=== PATIENT | male | born 1940 | race Caucasian/White ===

== ENCOUNTER 2020-01-14 10:34 | Emergency (ER) | payer MEDICARE, OTHER, SELFPAY ==
--- NOTE | ~2020-01-14 | CT_ITS ---
EXAMINATION: CT brain wo con DATE: 01/14/2020 10:54 INDICATION: Headache, dizziness and nausea TECHNIQUE: Computed tomography (CT) of the head was performed without intravenous contrast. Sagittal and coronal reconstructions were performed. The mA was adjusted according to patient size. Iterative reconstruction technique was employed. The dose-length product was 605.33 mGy-cm. COMPARISON: head CT dated 04/09/2014 FINDINGS: No acute intracranial hemorrhage, acute infarction or abnormal extra axial fluid collection. No mass/ mass effect. There is moderate scattered white matter hypoattenuation consistent with chronic small v essel ischemic disease. Symmetric prominence of the sulci consistent with mild age-appropriate diffus e cerebral volume loss. Ventricles are normal and symmetric. Mild mucosal thickening in the bilateral ethmoid sinuses. The orbits and mastoid air cells are normal. Intracranial calcified cerebral athero sclerosis is noted. IMPRESSION: 1. No acute intracranial process. 2. Age-related changes including mild diffuse volume loss and moderate scattered white matter hypoatt enuation consistent with chronic small vessel ischemic disease. Reviewed, dictated and finalized at location A. IMPRESSION: 1. No acute intracranial process. 2. Age-related changes including mild diffuse volume loss and moderate scattere d white matter hypoattenuation consistent with chronic small vessel ischemic di sease.
--- NOTE | ~2020-01-14 | XR_ITS ---
EXAMINATION: XR chest 1V DATE: 01/14/2020 10:59 INDICATION: Cerebrovascular accident. TECHNIQUE: A single frontal view of the chest was obtained. COMPARISON: Chest single view 07/23/2015 FINDINGS: There is mild atelectasis at left lung base. No pleural effusion or pneumothorax. The heart size is normal. There is an old healed right rib fracture. There are changes of anterior fusion proc edure in cervical spine. IMPRESSION: 1. Mild atelectasis at left lung base. Reviewed, dictated and finalized at location A.
[2020-01-14 10:38] VITALS: BP 149/81; PULSE 61; RESP 17; TEMP 36.3; O2SAT 97
--- NOTE | 2020-01-14 10:41 | ECG_ITS ---
Measurements Intervals [place] Rate: 52 P: 6 [place]: 245 QRS: -13 QRSD: 113 T: 21 QT: 464 QTc: 435 Interpretive Statements SINUS BRADYCARDIA WITH FIRST DEGREE AV BLOCK INTRAVENTRICULAR CONDUCTION DELAY DELAYED PRECORDIAL R/S TRANSITION LOW QRS VOLTAGE IN PRECORDIAL LEADS INFERIOR INFARCT, AGE INDETERMINATE BASELINE ARTIFACT- I, III, AVR, AVL, AVF, V1-V6 ABNORMAL ECG Electronically Signed On 01-14-2020 11:15:39 CDT by Caio Pop D.O.
[2020-01-14 10:45] LABS: Glucose Point of Care 86 (65-105)
--- NOTE | 2020-01-14 10:48 | PC.NURSE ---
Pt to CT scan.
[2020-01-14 10:54] LABS: Basophils Percent Auto 0.4 % (0.2-1.2); Eosinophils Absolute Auto 0.1 K/mm3 (0-0.3); Eosinophils Percent Auto 1.6 % (0-4.4); Hematocrit 33.1 % (42.0-52.0); Hemoglobin 11.1 g/dL (14.0-18.0); Immature Granulocyte Absolute 0.02 K/mm3 (0.00-0.031); Immature Granulocyte Percent A 0.4 % (0-0.5); Lymphocytes Absolute Auto 1.08 K/mm3 (0.9-3.2); Lymphocytes Percent Auto 24.3 % (18.3-44.2); Mean Corpuscular HGB Conc 33.5 g/dl (32-36); Mean Corpuscular Hemoglobin 32.8 pg (26-34); Mean Corpuscular Volume 97.9 fl (80-100); Mean Platelet Volume 10.3 fl (7.4-10.4); Monocytes Absolute Auto 0.3 K/mm3 (0.1-0.6); Neutrophils Percent Auto 66.3 % (45.5-73.1); Platelet Count Result 202 k/mm3 (150-375); Red Blood Count 3.38 M/mm3 (4.6-6.20); Red Cell Distribution Width 15.8 % (11.5-14.5); White Blood Count 4.5 K/mm3 (4.5-10.0)
[2020-01-14 11:06] LABS: Blood Urea Nitrogen 16 mg/dL (9-20); Carbon Dioxide 31 mmol/L (22-30); Chloride 104 mmol/L (98-107); Estimated CRCL calculation 61 ml/min; Estimated Glomerular Filt Rate > 60; Glucose 105 mg/dL (75-110); Potassium 4.4 mmol/L (3.4-5.0); Sodium 140 mmol/L (137-145)
--- NOTE | 2020-01-14 11:08 | ED.NEUROSD ---
HPI - Neuro Symptoms/Deficit General Chief Complaint: Suspected CVA <ZOHRA Zamora Last Filed: 01/14/20 14:10> Stated Complaint: dizzy, headache, nausea, h/a <ZOHRA Zamora Last Filed: 01/14/20 14:10> Time Seen by Provider: 01/14/20 10:56 <ZOHRA Zamora Last Filed: 01/14/20 14:10> Source: patient <ZOHRA Zamora Last Filed: 01/14/20 14:10> Mode of arrival: ambulatory <ZOHRA Zamora Filed: 01/14/20 14:10> Limitations: no limitations <ZOHRA Zamora Last Filed: 01/14/20 14:10> History of Present Illness HPI Narrative: This is a 79-year-old male that presents to the emergency department for an episode of dizziness this morning. Reports he was working on his boat and turned his head to the left. Reports he suddenly felt dizzy and was sweating. Reports a headache. Reports the episode lasted briefly. Now has just a mild frontal headache. Denies fever, vision changes, vomiting, numbness or weakness. <ZOHRA Zamora Last Filed: 01/14/20 14:10> Related Data Home Medications: Home Medications Medication Instructions Recorded Confirmed aspirin 81 mg tablet,delayed 81 mg PO DAILY 08/19/19 release <ZOHRA Zamora Last Filed: 01/14/20 14:10> Allergies/Adverse Reactions: Allergies Allergy/AdvReac Type Severity Reaction Status Date / Time clonidine Allergy Mild unknown Verified 01/14/20 11:29 latex Allergy Unknown Rash Verified 01/14/20 11:29 <ZOHRA Zamora Last Filed: 01/14/20 14:10> Review of Systems Review of Systems: Narrative: CONSTITUTIONAL: Denies fever EYES: Denies visual changes CARDIOVASCULAR: Denies chest pain RESPIRATORY: Denies dyspnea. GASTROINTESTINAL: Denies vomiting GENITOURINARY: Denies dysuria NEUROLOGIC: Reports headache. Denies numbness, or weakness. <ZOHRA Zamora Filed: 01/14/20 14:10> All systems reviewed & are unremarkable except as noted in HPI and below <Prudence Hernandez PA-C - Last Filed: 01/14/20 14:10> COUNT INCLUDES THE [facility] Past Medical History Medical History: Medical History (Updated 01/14/20 @ 14:08 by Prudence Hernandez PA-C) Bunion of great toe History of coronary artery disease History of hyperlipidemia History of hypertension <Prudence Hernandez PA-C - Last Filed: 01/14/20 14:10> Surgical History Surgical History: Surgical History H/O cervical discectomy H/O colonoscopy H/O spinal fusion History of esophagogastroduodenoscopy (EGD) History of nephrectomy Hx of cholecystectomy <Prudence Hernandez PA-C - Last Filed: 01/14/20 14:10> Social History Social History: Social History Alcohol intake: never Gender identity (if verbalized by the patient): Male <Prudence Hernandez PA-C - Last Filed: 01/14/20 14:10> Exam Narrative: Exam Narrative: GENERAL: Well-appearing, well-nourished, and in no acute distress. HEAD: Normocephalic, atraumatic. EYES: PERRLA and EOMI. ENT: Nares clear, no rhinorrhea or epistaxis. Mucous membranes moist. Oropharynx without tonsillar hypertrophy exudate or other lesions. Bilateral TMs pearly enrique non-bulging NECK: Supple. No adenopathy or masses. No carotid bruits or JVD CHEST: Clear to auscultation. No respiratory distress. No wheezes rales or rhonchi HEART: Regular rate and rhythm. No murmur heard. Normal peripheral pulses. EXTREMITIES: Normal range of motion. No edema. SKIN: Warm, dry, no rash. NEURO: No focal deficits. Alert and oriented x3. Cranial nerves II through XII grossly intact. Normal [id number]. Normal [id number]. Normal gait PSYCH: Normal mood and affect <Prudence Hernandez PA-C - Last Filed: 01/14/20 14:10> Course Vital Signs Vital signs: Vital Signs Temperature 36.3 C L 01/14/20 10:38 Pulse Rate 61 01/14/20 10:38 Respiratory Rate
[2020-01-14 11:09] LABS: Prothrombin Time 12.9 Seconds (11.1-14.7)
[2020-01-14 11:10] LABS: Partial Thromboplastin Time 34.6 SECONDS (22.3-36.8)
[2020-01-14 11:15] VITALS: BP 152/81; PULSE 53; RESP 19; O2SAT 96
[2020-01-14 11:17] VITALS: O2SAT 96
[2020-01-14 11:19] LABS: Troponin I < 0.012 ng/mL (0.000-0.034)
[2020-01-14] MEDS: ONDANSETRON INJ 4 MG/2 ML VIAL IV PUSH (11:26)
[2020-01-14 13:01] VITALS: BP 152/76; PULSE 53; RESP 13; O2SAT 97
[2020-01-14] MEDS: MECLIZINE HCL 25 MG TABLET PO (13:23)
[2020-01-14 14:51] VITALS: BP 165/87; PULSE 53; RESP 16; TEMP 36.8; O2SAT 99
== END 2020-01-14 14:54 | disposition home or self-care (01) ==
PROVIDERS: Emergency Provider Emergency Medicine; PCP Family Medicine
DX: R42 Dizziness and giddiness (principal); I25.10 Atherosclerotic heart disease of native coronary artery without angina pectoris; E78.5 Hyperlipidemia, unspecified; I10 Essential (primary) hypertension; Z98.1 Arthrodesis status; Z90.5 Acquired absence of kidney; I44.0 Atrioventricular block, first degree; I45.9 Conduction disorder, unspecified; R94.31 Abnormal electrocardiogram [ECG] [EKG]; R91.8 Other nonspecific abnormal finding of lung field; Z79.82 Long term (current) use of aspirin
CPT/HCPCS: 36415; 70450; 71045; 80048; 82948; 84484; 85025; 85610; 85730; 93005; 96365; 96375; 99284; A9270; J0131; J2405

== ENCOUNTER 2020-07-12 15:46 | Outpatient (CLI) | payer MEDICARE, SELFPAY ==
--- NOTE | ~2020-07-12 | XR_ITS ---
EXAMINATION: XR knee LT 2V DATE: 07/12/2020 16:10 INDICATION: Left knee pain. Gout. TECHNIQUE: 2 views of left knee were obtained. COMPARISON: None. FINDINGS: Bone alignment is normal. No fracture. There is mild osteoarthritis of patellofemoral erendira rtment. There is chondrocalcinosis of the menisci. No knee joint effusion. IMPRESSION: 1. Mild left knee osteoarthritis. Reviewed, dictated and finalized at location A. TIC SURGERY MANAGER
== END 2020-07-12 15:47 | disposition home or self-care (01) ==
LOC: ANHIMG 15:53
PROVIDERS: PCP Family Medicine; Visit Provider Physician Assistant
DX: M10.9 Gout, unspecified (principal); M17.12 Unilateral primary osteoarthritis, left knee; M11.262 Other chondrocalcinosis, left knee
CPT/HCPCS: 73560

== ENCOUNTER 2020-07-26 16:28 | Outpatient (CLI) | payer MEDICARE, SELFPAY ==
--- NOTE | ~2020-07-26 | XR_ITS ---
EXAMINATION: XR chest 2V DATE: 07/26/2020 17:14 INDICATION: Cough TECHNIQUE: PA and lateral views of the chest are obtained. COMPARISON: 01/14/2020 FINDINGS: The lungs are free of acute opacities. There is no pleural effusion or pneumothorax. The ca rdiomediastinal silhouette is normal. There are bridging osteophytes at multiple levels in the spine, consistent with diffuse idiopathic skeletal hyperostosis (DISH). There are changes of anterior fusio n procedure at the cervicothoracic junction. IMPRESSION: 1. No acute cardiopulmonary abnormality. Reviewed, dictated and finalized at location A. SUPPORT ENGINEER
== END 2020-07-26 16:29 | disposition home or self-care (01) ==
LOC: ANHIMG 16:39
PROVIDERS: PCP Family Medicine; Visit Provider Physician Assistant
DX: R05 Cough (principal)
CPT/HCPCS: 71046

== ENCOUNTER → 2020-10-05 11:03 | Outpatient (CLI) | payer MEDICARE, SELFPAY ==
--- NOTE | ~2020-10-05 | CT_ITS ---
EXAMINATION: CT lumbar spine wo con DATE: 10/05/2020 11:34 INDICATION: Dorsalgia, unspecified. TECHNIQUE: Computed tomography (CT) of the lumbar spine was performed without intravenous contrast. A utomated exposure control and iterative reconstruction technique were employed. The dose-length produ ct was 930.57 mGy-cm. COMPARISON: None FINDINGS: There is 13 degrees levoscoliosis of lumbar spine. There is mild chronic anterior wedging o f L1 vertebral body. There is 4 mm retrolisthesis of L2 on L3. There is severely decreased disc heigh t at L1-L2, L2-L3, and L4-L5 and moderately decreased disc height at L3-L4. The following disc levels are specifically discussed: L1-L2: The disc is bulging. There is mild bilateral facet joint osteoarthritis. There is moderate rig ht and mild left neural foraminal stenosis. There is mild central canal stenosis. L2-L3: The disc is bulging. There is mild bilateral facet joint osteoarthritis. There is severe right and moderate left neural foraminal stenosis. There is mild central canal stenosis. L3-L4: The disc is bulging. There is severe right and moderate left facet joint osteoarthritis. There is moderate bilateral neural foraminal stenosis. There is mild central canal stenosis. L4-L5: The disc is bulging. There is severe bilateral facet joint osteoarthritis. There is moderate b ilateral neural foraminal stenosis. There is mild central canal stenosis. L5-S1: The disc is bulging. There is severe bilateral facet joint osteoarthritis. There is mild right and moderate left neural foraminal stenosis. There is mild central canal stenosis. IMPRESSION: 1. Severe lumbar spondylosis. 2. Lumbar levoscoliosis. Reviewed, dictated and finalized at location A.
--- NOTE | ~2020-10-05 | CT_ITS ---
EXAMINATION: CT cervical spine wo con DATE: 10/05/2020 11:34 INDICATION: Unsteady gait. Bilateral leg pain. Dorsalgia. TECHNIQUE: Computed tomography (CT) of the cervical spine was performed without intravenous contrast. Automated exposure control and iterative reconstruction technique were employed. The dose-length pro duct was 272.32 mGy-cm. COMPARISON: CT cervical spine 04/09/2014 FINDINGS: There is mild emphysema. There is 3 mm retrolisthesis of C3 on C4. There are changes of ant erior fusion procedure from C4 to C7 with discectomies, healed interbody bone graft, and anterior jonna te and screws. Vertebral body heights are normal. There is severely decreased disc height at C3-C4, C 7-T1, and T1-T2. The following disc levels are specifically discussed: C2-C3: There is mild left uncovertebral joint osteoarthritis. There is mild right and moderate left f acet joint osteoarthritis. There is mild left neural foraminal stenosis. There is no central canal st enosis. C3-C4: There is severe bilateral uncovertebral joint osteoarthritis. There is severe right and mild l eft facet joint osteoarthritis. There is moderate right and mild left neural foraminal stenosis. Ther e is mild central canal stenosis. C4-C5: There is moderate right and severe left uncovertebral joint hypertrophy. There is no facet otto nt osteoarthritis. There is mild right and moderate left neural foraminal stenosis. There is no centr al canal stenosis. C5-C6: There is moderate bilateral uncovertebral joint hypertrophy. There is moderate bilateral facet joint osteoarthritis. There is mild right and moderate left neural foraminal stenosis. There is no c entral canal stenosis. C6-C7: There is mild bilateral uncovertebral joint hypertrophy. There is moderate bilateral facet otto nt osteoarthritis. There is mild bilateral neural foraminal stenosis. There is no central canal steno sis. C7-T1: There is severe bilateral uncovertebral joint osteoarthritis. There is moderate and severe lef t facet joint osteoarthritis. There is mild bilateral neural foraminal stenosis. There is no central canal stenosis. IMPRESSION: 1. Severe cervical spondylosis. 2. Anterior fusion procedure from C4 to C7. Reviewed, dictated and finalized at location A.
== END ==
PROVIDERS: PCP Family Medicine; Visit Provider Family Medicine
DX: R26.81 Unsteadiness on feet (principal); M54.9 Dorsalgia, unspecified; M79.606 Pain in leg, unspecified; M47.812 Spondylosis without myelopathy or radiculopathy, cervical region; Z98.1 Arthrodesis status; M47.816 Spondylosis without myelopathy or radiculopathy, lumbar region; M41.86 Other forms of scoliosis, lumbar region
CPT/HCPCS: 72125; 72131

== ENCOUNTER 2020-10-09 17:46 | Inpatient (IN) | payer MEDICARE, SELFPAY ==
[2020-10-09] VITALS (13 sets, daily range): BP systolic 140–187; BP diastolic 71–89; PULSE 55–71; RESP 12–21; TEMP 35.9–36.8; O2SAT 95–98; BMI 30.7
--- NOTE | ~2020-10-09 | XR_ITS ---
EXAMINATION: XR chest 2V DATE: 10/09/2020 18:14 INDICATION: Left chest pain. TECHNIQUE: Frontal and lateral views of the chest were obtained. COMPARISON: Chest 2 views 07/26/2020 FINDINGS: There is mild atelectasis at left lung base. No pleural effusion or pneumothorax. The heart size is normal. There are changes of anterior fusion procedure in cervical spine. There are surgical clips in right upper quadrant of the abdomen. IMPRESSION: 1. Mild atelectasis at left lung base. Reviewed, dictated and finalized at location A.
--- NOTE | 2020-10-09 17:47 | ECG_ITS ---
Measurements Intervals [place] Rate: 63 P: 12 [place]: 241 QRS: -34 QRSD: 115 T: 42 QT: 417 QTc: 428 Interpretive Statements SINUS RHYTHM WITH FIRST DEGREE AV BLOCK LOW QRS VOLTAGE IN PRECORDIAL LEADS POOR R WAVE PROGRESSION, ANTERIOR LEADS INFERIOR INFARCT, AGE INDETERMINATE ABNORMAL ECG Electronically Signed On 10-10-2020 7:02:43 CDT by Caio Pop D.O.
[2020-10-09 18:05] LABS: Basophils Percent Auto 0.4 % (0.2-1.2); Eosinophils Absolute Auto 0.1 K/mm3 (0-0.3); Eosinophils Percent Auto 1.6 % (0-4.4); Hemoglobin 11.1 g/dL (14.0-18.0); Immature Granulocyte Absolute 0.03 K/mm3 (0.00-0.031); Immature Granulocyte Percent A 0.7 % (0-0.5); Lymphocytes Percent Auto 33.3 % (18.3-44.2); Mean Corpuscular HGB Conc 33.6 g/dl (32-36); Mean Corpuscular Hemoglobin 33.1 pg (26-34); Mean Corpuscular Volume 98.5 fl (80-100); Mean Platelet Volume 10.4 fl (7.4-10.4); Monocytes Absolute Auto 0.4 K/mm3 (0.1-0.6); Monocytes Percent Auto 8.2 % (2.6-8.5); Neutrophils Absolute Auto 2.5 K/mm3 (1.3-6.7); Neutrophils Percent Auto 55.8 % (45.5-73.1); Platelet Count Result 202 k/mm3 (150-375); Red Blood Count 3.35 M/mm3 (4.6-6.20); Red Cell Distribution Width 15.4 % (11.5-14.5); White Blood Count 4.5 K/mm3 (4.5-10.0)
[2020-10-09 18:14] LABS: INR 0.9; Prothrombin Time 12.6 Seconds (11.1-14.7)
[2020-10-09 18:15] LABS: Partial Thromboplastin Time 35.1 SECONDS (22.3-36.8)
[2020-10-09 18:16] LABS: Anion Gap 7 mmol/L (8-16); Blood Urea Nitrogen 21 mg/dL (9-20); Calcium 9.2 mg/dL (8.4-10.2); Carbon Dioxide 29 mmol/L (22-30); Chloride 105 mmol/L (98-107); Estimated CRCL calculation 57 ml/min; Estimated Glomerular Filt Rate 59; Glucose 129 mg/dL (75-110); Potassium 3.9 mmol/L (3.4-5.0); Sodium 141 mmol/L (137-145)
[2020-10-09 18:33] LABS: Troponin I < 0.012 ng/mL (0.000-0.034)
--- NOTE | 2020-10-09 20:24 | ED.CHESTPAIN ---
HPI - Chest Pain General Chief Complaint: Chest Pain Stated Complaint: chest pain Time Seen by Provider: 10/09/20 20:18 Source: patient Mode of arrival: ambulatory Limitations: no limitations History of Present Illness HPI narrative: Patient is a 79-year-old male complaining of chest pain, midsternal, burning, radiating to left upper extremity that started prior to arrival. Patient states that he took 1 nitro which provided relief, but left arm pain recurred. Patient denies any dizziness, shortness of breath, Magdiel pain, nausea, vomiting, diaphoresis, fever or chills. Related Data Home Medications Medication Instructions Recorded Confirmed aspirin 81 mg tablet,delayed 81 mg PO DAILY 08/19/19 09/29/20 release Allergies Allergy/AdvReac Type Severity Reaction Status Date / Time clonidine Allergy Mild unknown Verified 09/27/20 15:08 latex Allergy Unknown Rash Verified 09/27/20 15:08 Review of Systems Review of Systems: All systems reviewed & are unremarkable except as noted in HPI and below Constitutional: Constitutional: Denies body ache(s), Denies chills, Denies excessive sweating, Denies fatigue, Denies fever(s), Denies headache(s), Denies lethargy, Denies malaise, Denies weakness and Denies weight loss Eyes: Eyes: Denies blurry vision, Denies change in vision and Denies loss of vision ENT: Denies dizziness, Denies ear discharge, Denies headache(s), Denies lip swelling, Denies epistaxis, Denies nasal congestion, Denies neck pain, Denies throat swelling and Denies tongue swelling Cardiovascular: Cardiovascular: Denies diaphoresis, Denies rapid heart rate, Denies edema, Denies irregular heart rhythm, Denies lightheadedness, Denies palpitations, Denies dyspnea and Denies dyspnea on exertion Respiratory: Respiratory: Denies chest congestion, Denies cough, Denies hemoptysis, Denies dyspnea and Denies dyspnea on exertion Gastrointestinal: Gastrointestinal: Denies abdominal pain, Denies melena, Denies hematochezia, Denies diarrhea, Denies nausea, Denies vomiting and Denies hematemesis Musculoskeletal: Musculoskeletal: Denies abnormal gait, Denies deformity, Denies joint swelling, Denies limited range of motion, Denies neck pain and Denies numbness Neurologic: Denies Abnormal speech present, Denies abnormal gait, Denies confusion, Denies dizziness, Denies headache(s), Denies focal weakness, Denies loss of vision, Denies numbness, Denies Other visual disturbances, Denies Sensory deficit (Neuro) and Denies weakness Psychiatric: Psychiatric: Denies confusion, Denies depression, Denies auditory hallucinations, Denies homicidal ideation and Denies suicidal ideation Endocrine: Endocrine: Denies cold intolerance, Denies excessive sweating, Denies fatigue, Denies heat intolerance and Denies palpitations Hematologic/Lymphatic: Hematologic/Lymphatic: Denies easy bleeding and Denies easy bruising Allergic/Immunologic: Allergic/Immunologic: Denies lip swelling, Denies throat swelling and Denies tongue swelling PMFSH Past Medical History Medical History Bunion of great toe History of coronary artery disease History of hyperlipidemia History of hypertension Surgical History Surgical History H/O cervical discectomy H/O colonoscopy H/O spinal fusion History of esophagogastroduodenoscopy (EGD) History of nephrectomy Hx of cholecystectomy Family History Family History Father Diabetes mellitus Hypertension Patient's father is , Onset Age: 85 Family history of cardiovascular disease Acute myocardial infarction Family history of coronary artery disease Mother Diabetes mellitus Hypertension Family history of cardiovascular disease Acute myocardial infarction Cerebrovascular accident Family history of coronary artery disease Grandparent Diabetes me
--- NOTE | 2020-10-09 20:30 | PC.NURSE ---
Patient is pain free at this time. States that while he was in the waiting room he was having intermittent chest tightness but this would dissipate within a few minutes of onset. No other complaints at this time.
[2020-10-09] MEDS: ASPIRIN 81 MG CHEWABLE TABLET 324 MG PO (21:04)
[2020-10-09] MEDS: NITROGLYCERIN OINTMENT 1 INCH DOSE TRANSDERM (21:05)
[2020-10-09 21:40] LABS: Troponin I < 0.012 ng/mL (0.000-0.034)
[2020-10-09] MEDS: METOPROLOL TARTRATE 50 MG TAB PO (22:37)
--- NOTE | 2020-10-09 22:43 | PM.IMHP ---
H&P: HPI History of Present Illness Date/Time: 10/09/20 22:43 Chief Complaint: Chest pain while taking out the trash+ Narrative: This is a pleasant 79-year-old male with known history coronary artery disease status post #1 Stent placed in 2016, chronic hypertension, Renal cancer s/p nephrectomy, and hyperlipidemia who presented to the hospital with acute onset of midsternal chest pain that began shortly after he ate a ham sandwich today. The patient describes that he was taking out the trash when suddenly he started to experience midsternal chest pain that seemed to radiate towards his left arm. After few minutes he decided to take 1 nitroglycerin sublingual which did resolve his pain. Shortly later his pain recurred and EMS was called. The patient describes having off and on chest pain now for over an hour. He rated his chest pain as a burning in quality. He denies any associated symptoms of diaphoresis, nausea, vomiting, shortness of breath, lightheadedness, dizziness, or palpitations. The patient denies having any other recent symptoms such as headache, fever, chills, coughing, abdominal pain, dysuria, hematuria, lower extremity swelling, diarrhea, or rectal bleeding. Patient's last stress test was about 3 years ago. The patient sees cardiology at [facility] but came to our hospital as it is closer to his house. ER provider attempted to transfer the patient to [facility] although they do not have any beds available at this time. The patient was evaluated emergency room and his initial troponin is negative. EKG does not show any acute ST segment elevation. We been asked to admit the patient to the hospital for cardiac rule out. On my encounter with the patient tonight he is asymptomatic tells me he feels much better now. No other complaints. Review of Systems Review of Systems: All systems reviewed & are unremarkable except as noted in HPI and below PMFSH Past Medical History Medical History (Updated 10/09/20 @ 22:50 by Cuong Fay MD) Bunion of great toe History of coronary artery disease History of hyperlipidemia History of hypertension Hx of renal cell cancer Surgical History Surgical History H/O cervical discectomy H/O colonoscopy H/O spinal fusion History of esophagogastroduodenoscopy (EGD) History of nephrectomy Hx of cholecystectomy Family History Family History Father Diabetes mellitus Hypertension Patient's father is , Onset Age: 85 Family history of cardiovascular disease Acute myocardial infarction Family history of coronary artery disease Mother Diabetes mellitus Hypertension Family history of cardiovascular disease Acute myocardial infarction Cerebrovascular accident Family history of coronary artery disease Grandparent Diabetes mellitus Hypertension Family history of cardiovascular disease Cerebrovascular accident Family history of coronary artery disease Sibling Family history of cardiovascular disease Social History Social History (Updated 10/09/20 @ 22:49 by Cuong Fay MD) Smoking status: Former smoker Alcohol intake: never Gender identity (if verbalized by the patient): Male Meds Home Medications and Allergies Home Medications Medication Instructions Recorded Confirmed Type aspirin 81 mg tablet,delayed 81 mg PO DAILY 08/19/19 09/29/20 History release isosorbide mononitrate 30 mg See Rx Instructions .ROUTE 02/03/20 09/29/20 Rx tablet,extended release 24 hr .COMPLEX #90 tablet amlodipine 10 mg tablet 10 mg PO DAILY #90 tablet 04/11/20 09/29/20 Rx atorvastatin 40 mg tablet 40 mg PO DAILY #90 tablet 04/11/20 09/29/20 Rx lisinopril 20 mg tablet See Rx Instructions .ROUTE 04/11/20 09/29/20 Rx .COMPLEX #180 tablet tramadol 50 mg tablet 50 mg PO Q6H PRN #20 tablet 09/29/20 09/29/20 Rx carvedilol 3.125 mg tablet See R
--- NOTE | 2020-10-09 23:37 | ADMGEN ---
This patient, Javad Thomas, was admitted to IMU Room 231-01 on 10/09/20 at 2337. Patient/family oriented to hospital policies and general routines including ID bracelet, bed and alarms, visiting hours, pain management, procedures, bathroom and other care routines, personal items, smoking policy, room service/diet, and visiting hours. Information on how to activate the Rapid Response Team has been discussed. Patient/Family are encouraged to report perceived risks to care and to ask questions if they do not understand what they are told or what they should do.
[2020-10-10] VITALS (28 sets, daily range): BP systolic 131–187; BP diastolic 52–89; PULSE 51–70; RESP 13–21; TEMP 35.9–36.6; O2SAT 90–98; BMI 30.7
[2020-10-10 00:24] LABS: Troponin I 0.014 ng/mL (0.000-0.034)
[2020-10-10 04:46] LABS: Basophils Percent Auto 0.3 % (0.2-1.2); Eosinophils Absolute Auto 0.1 K/mm3 (0-0.3); Eosinophils Percent Auto 1.8 % (0-4.4); Hemoglobin 10.4 g/dL (14.0-18.0); Immature Granulocyte Absolute 0.01 K/mm3 (0.00-0.031); Immature Granulocyte Percent A 0.3 % (0-0.5); Lymphocytes Absolute Auto 1.53 K/mm3 (0.9-3.2); Lymphocytes Percent Auto 38.4 % (18.3-44.2); Mean Corpuscular HGB Conc 33.5 g/dl (32-36); Mean Corpuscular Volume 98.4 fl (80-100); Mean Platelet Volume 10.1 fl (7.4-10.4); Monocytes Absolute Auto 0.3 K/mm3 (0.1-0.6); Monocytes Percent Auto 8.5 % (2.6-8.5); Neutrophils Percent Auto 50.7 % (45.5-73.1); Platelet Count Result 175 k/mm3 (150-375); Red Blood Count 3.15 M/mm3 (4.6-6.20); Red Cell Distribution Width 15.4 % (11.5-14.5)
[2020-10-10 04:58] LABS: Anion Gap 4 mmol/L (8-16); Blood Urea Nitrogen 20 mg/dL (9-20); Calcium 8.4 mg/dL (8.4-10.2); Carbon Dioxide 34 mmol/L (22-30); Chloride 104 mmol/L (98-107); Estimated CRCL calculation 55 ml/min; Estimated Glomerular Filt Rate 59; Glucose 117 mg/dL (75-110); Magnesium 1.9 mg/dL (1.6-2.3); Potassium 3.7 mmol/L (3.4-5.0); Sodium 142 mmol/L (137-145)
[2020-10-10] MEDS: ASPIRIN 81 MG ENTERIC TABLET PO (08:32)
--- NOTE | 2020-10-10 09:14 | PM.CNCAR ---
Assessment and Plan Assessment and plan (1) Unstable angina: Code(s): I20.0 - Unstable angina Status: Acute Assessment and Plan: Concerning onset of typical substernal chest pain radiating to the left arm/axilla initially resolved with sublingual nitroglycerin but with waxing waning recurrence prompting admission. Pain-free with nitro paste, ruled out for acute infarction with negative serial cardiac enzymes or new acute ischemic changes on EKG although prior inferior infarction noted. -Given extensive multi-vessel disease on left heart catheterization 2015 40-50% left main stenosis, 60-70% ramus intermedius branch stenosis, status post 2.75 x 20 mm bare metal stent to mid LAD which was totally occluded July 23, 2015, RCA 60-70% stenosis diffusely 50% distal, 80-90% stenosis diffusely moderate sized obtuse marginal branch, circumflex 30-40% diffuse proximal stenosis. -discussed with Dr. Gale with Cardiololist at [facility]. She agrees coronary angiography best option and would like us to pursue here at [place] at this time. Pt in agreement. Risks, benefits, alternatives discussed. Patient agrees with plan of care. -further recommendations to follow. Given extensive disease anticipate likely need for CABG as discussed. -discontinue nitroglycerin paste. -initially discussed invasive versus noninvasive evaluation, however, given extensive multivessel disease and the concerning nature of his symptoms coronary angiography advised. Of particular concern is progressive disease in the left main. (2) CAD (coronary artery disease): Code(s): I25.10 - Atherosclerotic heart disease of [place] coronary artery without angina pectoris Status: Acute Assessment and Plan: Aggressive secondary risk modification. Continue aspirin, statin, nitrate therapy, YFN-inhibitor. Beta-kendra however given bradycardia will hold for now. Bradycardia most prominent while asleep. If remains hospitalized apnea link overnight. (3) Essential hypertension: Code(s): I10 - Essential (primary) hypertension Status: Chronic Assessment and Plan: Fair control, initially quite elevated. Monitor closely. Continue home medical therapy. (4) Hyperlipidemia: Qualifiers: Hyperlipidemia type: unspecified Qualified Code(s): E78.5 - Hyperlipidemia, unspecified Code(s): E78.5 - Hyperlipidemia, unspecified Status: Chronic Assessment and Plan: Statin therapy. Goal LDL less than 70. Check lipid profile. (5) Bradycardia: Code(s): R00.1 - Bradycardia, unspecified Status: Acute Assessment and Plan: Transit, asymptomatic. Most prominent while asleep. Beta-kendra held for now. Continue telemetry. Would prefer to resume if heart rate able. Apnea link overnight if remains hospitalized. Recommendations to follow. History of Present Illness History of Present Illness Consult date/time: Date of service: 10/10/20 09:14 Cardiology consultation at the request of Dr. Fay for our opinion regarding chest pain and bradycardia. Requesting physician: Cuong Fay MD Consult reason: chest pain Reason For Visit: chest pain Narrative: Patient is a very pleasant 79-year-old male with past medical history significant for hypertension, dyslipidemia, CAD with prior NSTEMI and 2.75 x 20 mm bare metal stent to mid LAD which was totally occluded on left heart catheterization here at [place] 07/23/2015. At that time patient had 40-50% left main stenosis, 60-70% ramus intermedius branch stenosis, 30-40% diffuse proximal circumflex stenosis, 80-90% diffuse moderate size obtuse marginal branch stenosis, 60-70% diffuse RCA stenosis proximally. Since that time, patient has done well. He had a stress test in 2018 with fixed apical infarction no reversible ischemia. He had been doing well but now admits he has been much more fatigued with activity, chronic PECK. He states he ate a ham sandwich fo
[2020-10-10] MEDS: TAMSULOSIN HCL 0.4 MG CAPSULE PO (09:39)
[2020-10-10] MEDS: CHOLECALCIFEROL 1,000 UNITS TABLET 2000 UNITS PO (09:39)
[2020-10-10] MEDS: ESCITALOPRAM OXALATE 10 MG TABLET 20 MG PO (09:39)
[2020-10-10] MEDS: ISOSORBIDE MONONITRATE 30 MG TAB.ER.24H PO (09:39)
[2020-10-10] MEDS: lisinopriL 20 MG TABLET PO ×2 (09:39→16:47)
[2020-10-10] MEDS: ASCORBIC ACID 500 MG TABLET PO (09:39)
[2020-10-10] MEDS: CYANOCOBALAMIN 1,000 MCG TABLET 2000 MCG PO (09:39)
[2020-10-10] MEDS: ATORVASTATIN 40 MG TABLET PO (09:40)
[2020-10-10 10:41] LABS: Cholesterol 129 mg/dL (0-200); HDL Direct 39 mg/dL; Triglycerides 95 mg/dL (<150)
[2020-10-10 10:53] LABS: LDL Cholesterol Direct 69 mg/dL
--- NOTE | 2020-10-10 12:46 | WPDMODSED ---
Moderate Sedation Note-Pt Data Patient Data Diagnosis: chest pain occurring in patient with known coronary disease and previous PCI /mi in 2016 Present Complaint: none Procedure to be performed/Plan: left heart catheterization Allergies Allergy/AdvReac Type Severity Reaction Status Date / Time clonidine Allergy Mild unknown Verified 10/09/20 22:54 latex Allergy Unknown Rash Verified 10/09/20 22:54 Home Medications Medication Instructions Recorded Confirmed Type aspirin 81 mg tablet,delayed 324 mg PO DAILY 08/19/19 10/09/20 History release amlodipine 10 mg tablet 10 mg PO DAILY #90 tablet 04/11/20 10/09/20 Rx atorvastatin 40 mg tablet 40 mg PO DAILY #90 tablet 04/11/20 10/09/20 Rx tamsulosin 0.4 mg capsule 0.4 mg PO DAILY #90 cap 10/04/20 10/09/20 Rx ascorbate calcium (vitamin C) 600 mg PO DAILY 10/09/20 10/09/20 History cholecalciferol (vitamin D3) 50 mcg PO DAILY 10/09/20 10/10/20 History mecobalamin (vitamin B12) 2,000 mcg PO DAILY 10/09/20 10/09/20 History carvedilol 3.125 mg PO BID 10/10/20 10/09/20 History escitalopram oxalate 20 mg PO DAILY 10/10/20 10/09/20 History isosorbide mononitrate 30 mg PO DAILY 10/10/20 10/09/20 History lisinopril 20 mg PO BID 10/10/20 10/09/20 History Current Medications: Active Medications Acetaminophen (Acetaminophen 325 Mg Tablet) 650 mg PO Q4H PRN PRN Reason: Mild Pain (1-3) or Fever Hydrocodone Bitart/Acetaminophen (Hydrocodone/Acetaminophen (*Crx) 5-325 Mg Tablet) 1 tab PO Q4H PRN PRN Reason: Moderate Pain (4-6) Amlodipine Besylate (Amlodipine Besylate 5 Mg Tablet) 10 mg PO DAILY [facility] Ascorbic Acid (Ascorbic Acid 500 Mg Tablet) 500 mg PO DAILY [facility] Last Admin: 10/10/20 09:39 Dose: 500 mg Documented by: Aspirin (Aspirin 81 Mg Enteric Tablet) 81 mg PO QAM [facility] Last Admin: 10/10/20 08:32 Dose: 81 mg Documented by: Atorvastatin Calcium (Atorvastatin 40 Mg Tablet) 40 mg PO DAILY [facility] Last Admin: 10/10/20 09:40 Dose: 40 mg Documented by: Cyanocobalamin (Cyanocobalamin 1,000 Mcg Tablet) 2,000 mcg PO DAILY [facility] Stop: 11/09/20 09:01 Last Admin: 10/10/20 09:39 Dose: 2,000 mcg Documented by: Enoxaparin Sodium (Enoxaparin 40 Mg/0.4 Ml Syringe) 40 mg SUB-Q DAILY [facility] Escitalopram Oxalate (Escitalopram Oxalate 10 Mg Tablet) 20 mg PO DAILY [facility] Last Admin: 10/10/20 09:39 Dose: 20 mg Documented by: Isosorbide Mononitrate (Isosorbide Mononitrate 30 Mg Tab.Er.24h) 30 mg PO DAILY [facility] Last Admin: 10/10/20 09:39 Dose: 30 mg Documented by: Lisinopril (Lisinopril 20 Mg Tablet) 20 mg PO BID [facility] Last Admin: 10/10/20 09:39 Dose: 20 mg Documented by: Tamsulosin HCl (Tamsulosin Hcl 0.4 Mg Capsule) 0.4 mg PO DAILY [facility] Last Admin: 10/10/20 09:39 Dose: 0.4 mg Documented by: Vitamin D (Cholecalciferol 1,000 Units Tablet) 2,000 units PO DAILY [facility] Last Admin: 10/10/20 09:39 Dose: 2,000 units Documented by: Sedation/Anesthesia: No previous sedation/anesthesia problems (including family history). [facility] Past Medical History Medical History Bunion of great toe History of coronary artery disease History of hyperlipidemia History of hypertension Hx of renal cell cancer Surgical History Surgical History H/O cervical discectomy H/O colonoscopy H/O spinal fusion History of esophagogastroduodenoscopy (EGD) History of nephrectomy Hx of cholecystectomy Family History Family History Father Diabetes mellitus Hypertension Patient's father is , Onset Age: 85 Family history of cardiovascular disease Acute myocardial infarction Family history of coronary artery disease Mother Diabetes mellitus Hypertension Family history of cardiovascular disease Acute myocardial infarction Cerebrovascular accident Family history of coronary artery disease Grandparent Diabetes mellitus Hypertensi
--- NOTE | 2020-10-10 14:16 | WPDCARDPROC ---
Cardiac Cath Procedure Note Date of procedure:: 10/10/20 Performing physician:: Rebel Lamas MD Indication:: History of coronary artery disease with previous KS/PCI presenting with chest pain. No ECG or troponin evidence of ACS. on the basis of previous angiogram demonstrating multivessel disease with some left main involvement a follow-up angiogram was recommended. Brief clinical history:: This is a 79-year-old man who presented back in 2016 with an acute anterior wall infarction. He had a total occlusion mid left anterior descending treated with emergency stenting. He did have modest left main disease, significant mid to distal circumflex disease as well as moderate proximal right coronary disease and a high-grade stenosis at the ostium of the RPDA at that time. All this other disease has been treated medically with good success in the intervening time. Procedure Procedure performed:: Left ventriculography coronary angiography femoral artery angiography Sedation/Medication given:: fentanyl 50 mg Versed 2 mg case start time 1:55 p.m. case end time 14 13 p.m. sedation provided by Kadi Crane RN, trained observer Access site:: right femoral artery Estimated blood loss:: 15-20 cc Procedure note:: patient was brought to the cardiac catheterization lab in the postabsorptive state the right femoral triangle was prepared in the normal fashion. Anesthesia was provided with 1% lidocaine infiltrated locally. Using the modified Seldinger technique a 5 Iranian sheath was placed into the right femoral artery after this left heart catheterization was carried out. A 5 Iranian angled pigtail catheter was used to measure left-sided hemodynamics and to injected LV g in the are AO projection. After this standard FL4 catheter was used to engage inject the left coronary artery and a standard JR4 catheter was used to engage and inject the right coronary artery. This any angiograms were then reviewed and the case was terminated. I injected angiogram of the femoral artery through the sheath and determined the sheath should be removed with direct manual compression as the femoral artery is diffusely diseased. The patient tolerated the procedure well there were no apparent complications and he left the labels molder no evidence of a groin hematoma. Findings:: Hemodynamics: Central aortic pressure is 1 42/78 left ventricle 142/8 EDP of 16. left ventricle: The LV appears to be normal in size. The LV injection triggered a run of nonsustained ventricular tachycardia during the angiogram making analysis of wall motion abnormality a bit more challenging. During the sinus beats at the end of the injection the mid to apical anterior wall appears to be hypodynamic but not akinetic the global ejection fraction is 50-55% by visual estimation. The left main coronary artery has minimal ostial narrowing but less 20-30% stenosis. The left anterior descending is a medium caliber artery which is heavily calcified. There is mild diffuse disease in the proximal LAD there is a visible stent material from the device placed in 2016 in the midportion after the major diagonal branch. This has minimal loss of lumen but no more than about 20-30% stenosis. Once again the proximal half of the LAD is significantly calcified. Circumflex is a medium caliber artery and rather small after the 1st marginal branch. The circumflex has moderate diffuse disease proximally to the OM branch and then distally where there is a bifurcation there is a discrete 90% stenosis at the end of this fairly long area of diffuse disease. Angiographically this appears identical to how it looked in 2016 the right coronary artery is large caliber and dominant to the posterior circulation. this vessel was also diffusely diseased mildly with mild luminal irregularities in all segments. The proximal RCA has about 30-40% stenosis this segment looked worse in 2016 where there was at least 60-7
--- NOTE | 2020-10-10 14:50 | SUR.PHASEII ---
KAMALA Wallis called Dr. Lamas for patient's elevated BP 170mmHg systolic. Dr. Lamas asked for 10mg of hydralazine to be given. RN to administer.
[2020-10-10] MEDS: hydrALAZINE HCL 20 MG/ML VIAL 10 MG IV PUSH ×2 (14:55→15:08)
--- NOTE | 2020-10-10 16:03 | PM.IMPN ---
Progress Note: A&P Assessment and Plan (1) Chest pain: Qualifiers: Chest pain type: chest pain due to myocardial ischemia Ischemic chest pain type: stable angina pectoris Qualified Code(s): I20.8 - Other forms of angina pectoris Code(s): R07.9 - Chest pain, unspecified Status: Acute Assessment and Plan: The patient has been placed in observation status. Continue telemetry. Continue aspirin therapy. Nitroglycerin as needed sublingual for chest pain. Trend troponin. Check another EKG now. Cardiology consultation in a.m.. Appreciate cardiology recommendations. 10/10/20 16:03 patient is 79-year-old male with history multivessel coronary artery disease presented emergency department with a complaint of chest radiating to left axilla, patient chest pain improved with sublingual nitro and nitropaste, 3 sets of cardiac enzymes are negative and there is no significant acute changes on EKG however patient was seen by clinical cytogeneticist scientist with extensive multivessel coronary artery disease recommending further evaluation with cardiac catheterization and further recommendation to follow, currently patient states is feeling much better, denies any complaint of chest pain shortness of breath palpitation fever or chills. His is present in the room. (2) Essential hypertension: Code(s): I10 - Essential (primary) hypertension Status: Chronic Assessment and Plan: Monitor blood pressure. Continue Coreg, lisinopril, and amlodipine. (3) Hyperlipidemia: Qualifiers: Hyperlipidemia type: unspecified Qualified Code(s): E78.5 - Hyperlipidemia, unspecified Code(s): E78.5 - Hyperlipidemia, unspecified Status: Chronic Assessment and Plan: Patient states he just recently had his cholesterol checked 2 weeks ago and was normal. Continue atorvastatin. Additional Plan Date of service was October 09, 2020 at approximately 10:00 p.m. Subjective Date/time seen: 10/10/20 16:03 patient is 79-year-old male with history multivessel coronary artery disease presented emergency department with a complaint of chest radiating to left axilla, patient chest pain improved with sublingual nitro and nitropaste, 3 sets of cardiac enzymes are negative and there is no significant acute changes on EKG however patient was seen by clinical cytogeneticist scientist with extensive multivessel coronary artery disease recommending further evaluation with cardiac catheterization and further recommendation to follow, currently patient states is feeling much better, denies any complaint of chest pain shortness of breath palpitation fever or chills. His is present in the room. Review of Systems Review of Systems: All systems reviewed & are unremarkable except as noted in HPI and below Exam Narrative: Exam Narrative: Patient is comfortable, NAD HEENT: eyes are clear and none icteric LUNGS:CTA HEART: RR S1S2 ABD: BS+, Soft and nontender Lower extremities: no edema SKIN: nonjaundiced Neuro: grossly intact. Objective Data Vital Signs Vital Signs: Vital Signs - 24 hr 10/09/20 17:49 10/09/20 20:27 10/09/20 21:01 Temperature 98.3 F 97.8 F Pulse Rate 66 64 64 Respiratory Rate 18 19 18 Blood Pressure 165/76 H 179/81 H Pulse Oximetry 95 97 10/09/20 21:12 10/09/20 22:30 10/09/20 22:32 Temperature 98.3 F Pulse Rate 71 62 65 Respiratory Rate 12 17 21 H Blood Pressure 179/89 H 166/71 H 140/87 Pulse Oximetry 97 95 96 10/09/20 22:37 10/09/20 22:39 10/09/20 22:40 Temperature 97.8 F Pulse Rate 65 71 Respiratory Rate 12 Blood Pressure 140/87 Pulse Oximetry 98 98 10/09/20 22:50 10/09/20 23:00 10/09/20 23:15 Temperature Pulse Rate 61 70 55 L Respiratory Rate 20 20 16 Blood Pressure Pulse Oximetry 96 96 10/09/20 23:40 10/10/20 00:00 10/10/20 00:04 Temperature 96.6 F L 96.6 F L Pulse Rate 57 L 70 57 L Respiratory Rate 18 18 Blood Pressure 187/86 H 187/86 H Pulse Oximetry 98 98
[2020-10-10] MEDS: ENOXAPARIN 40 MG/0.4 ML SYRINGE SUB-Q (16:47)
[2020-10-10] MEDS: amLODIPine BESYLATE 5 MG TABLET 10 MG PO (16:47)
[2020-10-11] VITALS (9 sets, daily range): BP systolic 153–155; BP diastolic 73–83; PULSE 53–71; RESP 18; TEMP 36.1–36.3; O2SAT 93–95
[2020-10-11 05:23] LABS: Hematocrit 31.7 % (42.0-52.0); Mean Corpuscular HGB Conc 34.7 g/dl (32-36); Mean Corpuscular Hemoglobin 33.6 pg (26-34); Mean Corpuscular Volume 96.9 fl (80-100); Mean Platelet Volume 10.4 fl (7.4-10.4); Platelet Count Result 169 k/mm3 (150-375); Red Blood Count 3.27 M/mm3 (4.6-6.20); Red Cell Distribution Width 15.2 % (11.5-14.5); White Blood Count 4.2 K/mm3 (4.5-10.0)
[2020-10-11 05:39] LABS: Anion Gap 3 mmol/L (8-16); Blood Urea Nitrogen 15 mg/dL (9-20); Calcium 8.5 mg/dL (8.4-10.2); Carbon Dioxide 31 mmol/L (22-30); Chloride 106 mmol/L (98-107); Estimated CRCL calculation 69 ml/min; Estimated Glomerular Filt Rate > 60; Glucose 108 mg/dL (75-110); Potassium 3.6 mmol/L (3.4-5.0); Sodium 140 mmol/L (137-145)
[2020-10-11] MEDS: lisinopriL 20 MG TABLET PO (08:42)
[2020-10-11] MEDS: ASPIRIN 81 MG ENTERIC TABLET PO (08:42)
[2020-10-11] MEDS: TAMSULOSIN HCL 0.4 MG CAPSULE PO (08:42)
[2020-10-11] MEDS: POTASSIUM CHLORIDE 20 MEQ TABLET 40 MEQ PO (08:42)
[2020-10-11] MEDS: ESCITALOPRAM OXALATE 10 MG TABLET 20 MG PO (08:43)
[2020-10-11] MEDS: ATORVASTATIN 40 MG TABLET PO (08:43)
[2020-10-11] MEDS: ISOSORBIDE MONONITRATE 30 MG TAB.ER.24H PO (08:43)
[2020-10-11] MEDS: ENOXAPARIN 40 MG/0.4 ML SYRINGE SUB-Q (11:44)
[2020-10-11] MEDS: amLODIPine BESYLATE 5 MG TABLET 10 MG PO (11:44)
--- NOTE | 2020-10-11 13:00 | PM.PNCARD ---
Progress Note: A&P Assessment and Plan (1) Unstable angina: Code(s): I20.0 - Unstable angina Status: Acute Assessment and Plan: Chest pain resolved without recurrence. Ruled out for myocardial infarction with negative serial cardiac enzymes. Coronary angiography revealed patent previously placed stent in the mid LAD, overall stability in previously noted coronary artery disease in fact with some improvement in severity in the proximal RCA and circumflex. Medical management. Continue current home regimen. Follow with Dr. Gale as n outpatient as scheduled. Contact her office to schedule. Discussed with Dr. Gale. Disposition home per hospitalist service today. (2) CAD (coronary artery disease): Code(s): I25.10 - Atherosclerotic heart disease of [place] coronary artery without angina pectoris Status: Acute Assessment and Plan: Aggressive secondary risk modification. Continue aspirin, statin, nitrate therapy, YFN-inhibitor. Resume carvedilol 3.125 mg twice daily. (3) Essential hypertension: Code(s): I10 - Essential (primary) hypertension Status: Chronic Assessment and Plan: Fair control, initially quite elevated. Monitor closely. Continue home medical therapy. (4) Hyperlipidemia: Qualifiers: Hyperlipidemia type: unspecified Qualified Code(s): E78.5 - Hyperlipidemia, unspecified Code(s): E78.5 - Hyperlipidemia, unspecified Status: Chronic Assessment and Plan: Statin therapy. Goal LDL less than 70. Check lipid profile. (5) Bradycardia: Code(s): R00.1 - Bradycardia, unspecified Status: Acute Assessment and Plan: Stable. Resume home carvedilol. Subjective Date/time seen: Date of service: 10/11/20 13:00 Follow-up for chest pain, CAD Feels well. No issues post cardiac catheterization yesterday. No pain in the leg. No chest pain, shortness of breath or dizziness. No issues overnight. Heart rate stable without significant bradycardia or pauses. Review of Systems Review of Systems: All systems reviewed & are unremarkable except as noted in HPI and below Constitutional: Constitutional: Reports as per HPI, Reports no additional constitutional complaints and Denies excessive sweating Eyes: Eyes: Reports as per HPI and Reports no additional eye complaints ENT: Reports system reviewed and no additional complaints, except as documented, Reports as per HPI and Reports neck pain Cardiovascular: Cardiovascular: Reports as per HPI, Reports no additional cardiovascular complaints, Denies chest pain, Reports leg edema, Denies dyspnea and Reports dyspnea on exertion Respiratory: Respiratory: Reports as per HPI, Reports no additional respiratory complaints, Denies dyspnea and Reports dyspnea on exertion Gastrointestinal: Gastrointestinal: Reports as per HPI, Reports no additional gastrointestinal complaints, Denies abdominal pain, Denies melena, Denies hematochezia, Denies heartburn, Denies nausea, Denies vomiting and Denies hematemesis Genitourinary: Genitourinary: Reports no additional male genitourinary complaints and Reports as per HPI Musculoskeletal: Musculoskeletal: Reports no additional musculoskeletal complaints, Reports as per HPI, Denies arthralgias and Denies neck pain Integumentary/Breasts: Skin/Breast: Reports system reviewed and no additional complaints, except as docu and Reports as per HPI Neurologic: Reports system reviewed and no additional complaints, except as documented, Reports as per HPI and Denies confusion Psychiatric: Psychiatric: Reports no additional psychiatric complaints, Reports as per HPI and Denies confusion Endocrine: Endocrine: Reports no additional endocrine complaints, Reports as per HPI, Denies excessive sweating and Denies fatigue Hematologic/Lymphatic: Hematologic/Lymphatic: Reports no additional hematologic/lymphatic complaints and Reports as per HPI Allergic/Immunologic: Allergi
--- NOTE | 2020-10-11 14:05 | PM.DS ---
DS: Admitting Diagnosis Admitting Diagnosis Admitting Diagnosis: Chief Complaint: Chest pain while taking out the trash+ DS: Discharge Diagnosis Discharge Diagnosis (1) Chest pain: Qualifiers: Chest pain type: chest pain due to myocardial ischemia Ischemic chest pain type: stable angina pectoris Qualified Code(s): I20.8 - Other forms of angina pectoris Code(s): R07.9 - Chest pain, unspecified Status: Acute Assessment and Plan: The patient has been placed in observation status. Continue telemetry. Continue aspirin therapy. Nitroglycerin as needed sublingual for chest pain. Trend troponin. Check another EKG now. Cardiology consultation in a.m.. Appreciate cardiology recommendations. 10/10/20 16:03 patient is 79-year-old male with history multivessel coronary artery disease presented emergency department with a complaint of chest radiating to left axilla, patient chest pain improved with sublingual nitro and nitropaste, 3 sets of cardiac enzymes are negative and there is no significant acute changes on EKG however patient was seen by pricing strategist with extensive multivessel coronary artery disease recommending further evaluation with cardiac catheterization and further recommendation to follow, currently patient states is feeling much better, denies any complaint of chest pain shortness of breath palpitation fever or chills. His is present in the room. (2) Essential hypertension: Code(s): I10 - Essential (primary) hypertension Status: Chronic Assessment and Plan: Monitor blood pressure. Continue Coreg, lisinopril, and amlodipine. (3) Hyperlipidemia: Qualifiers: Hyperlipidemia type: unspecified Qualified Code(s): E78.5 - Hyperlipidemia, unspecified Code(s): E78.5 - Hyperlipidemia, unspecified Status: Chronic Assessment and Plan: Patient states he just recently had his cholesterol checked 2 weeks ago and was normal. Continue atorvastatin. DS: Summary Hospital Course Reason for hospitalization: Chief Complaint: Chest pain while taking out the trash+ Narrative: This is a pleasant 79-year-old male with known history coronary artery disease status post #1 Stent placed in 2016, chronic hypertension, Renal cancer s/p nephrectomy, and hyperlipidemia who presented to the hospital with acute onset of midsternal chest pain that began shortly after he ate a ham sandwich today. The patient describes that he was taking out the trash when suddenly he started to experience midsternal chest pain that seemed to radiate towards his left arm. After few minutes he decided to take 1 nitroglycerin sublingual which did resolve his pain. Shortly later his pain recurred and EMS was called. The patient describes having off and on chest pain now for over an hour. He rated his chest pain as a burning in quality. He denies any associated symptoms of diaphoresis, nausea, vomiting, shortness of breath, lightheadedness, dizziness, or palpitations. The patient denies having any other recent symptoms such as headache, fever, chills, coughing, abdominal pain, dysuria, hematuria, lower extremity swelling, diarrhea, or rectal bleeding. Patient's last stress test was about 3 years ago. The patient sees cardiology at [facility] but came to our hospital as it is closer to his house. ER provider attempted to transfer the patient to [facility] although they do not have any beds available at this time. The patient was evaluated emergency room and his initial troponin is negative. EKG does not show any acute ST segment elevation. We been asked to admit the patient to the hospital for cardiac rule out. On my encounter with the patient tonight he is asymptomatic tells me he feels much better now. No other complaints. Hospital Course: patient is 79-year-old male with history multivessel coronary artery disease presented emergency department with a complaint of chest radiating to le
== END 2020-10-11 15:15 | disposition home or self-care (01) | DRG 287 ==
LOC: ANHED 21:13 → ANHIMU 22:48
PROVIDERS: Emergency Medicine; Internal Medicine Cardiovascular Disease; Specialist; Admitting Provider Family Medicine; Emergency Provider Emergency Medicine; PCP Family Medicine; Visit Provider Family Medicine
PROC: 4A023N7 Measurement of Cardiac Sampling and Pressure, Left Heart, Percutaneous Approach (ICD-10-PCS; CPT 93452; principal; 2020-10-10 12:30)
DX: I25.110 Atherosclerotic heart disease of native coronary artery with unstable angina pectoris (principal); I10 Essential (primary) hypertension; E78.5 Hyperlipidemia, unspecified; R00.1 Bradycardia, unspecified; Z95.5 Presence of coronary angioplasty implant and graft; I25.2 Old myocardial infarction; Z90.49 Acquired absence of other specified parts of digestive tract; Z98.1 Arthrodesis status; Z90.5 Acquired absence of kidney; Z85.53 Personal history of malignant neoplasm of renal pelvis; Z87.891 Personal history of nicotine dependence
CPT/HCPCS: 36415; 71046; 80048; 80061; 83735; 84484; 85025; 85027; 85610; 85730; 93005; 93458; 96372; 96374; 99285; A9270; C1887; C1894; G0378; J0360; J0461; J1644; J1650; J2250; J3010; J7040

== ENCOUNTER 2021-06-25 08:56 | Emergency (ER) | payer MEDICARE, SELFPAY ==
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
[2021-06-25 08:59] VITALS: BP 157/84; PULSE 75; RESP 16; TEMP 36.4; O2SAT 97
[2021-06-25 09:17] LABS: Basophils Percent Auto 0.4 % (0.2-1.2); Eosinophils Absolute Auto 0.1 K/mm3 (0-0.3); Eosinophils Percent Auto 1.4 % (0-4.4); Hematocrit 34.6 % (42.0-52.0); Hemoglobin 11.4 g/dL (14.0-18.0); Immature Granulocyte Absolute 0.04 K/mm3 (0.00-0.031); Immature Granulocyte Percent A 0.8 % (0-0.5); Lymphocytes Absolute Auto 0.89 K/mm3 (0.9-3.2); Lymphocytes Percent Auto 17.3 % (18.3-44.2); Mean Corpuscular HGB Conc 32.9 g/dl (32-36); Mean Corpuscular Hemoglobin 32.5 pg (26-34); Mean Corpuscular Volume 98.6 fl (80-100); Mean Platelet Volume 9.9 fl (7.4-10.4); Monocytes Absolute Auto 0.4 K/mm3 (0.1-0.6); Monocytes Percent Auto 7.8 % (2.6-8.5); Neutrophils Absolute Auto 3.7 K/mm3 (1.3-6.7); Neutrophils Percent Auto 72.3 % (45.5-73.1); Platelet Count Result 212 k/mm3 (150-375); Red Blood Count 3.51 M/mm3 (4.6-6.20); Red Cell Distribution Width 15.6 % (11.5-14.5); White Blood Count 5.1 K/mm3 (4.5-10.0)
[2021-06-25 09:23] LABS: Alanine Aminotransferase 34 U/L (4-50); Albumin Level 4.2 g/dL (3.5-5.1); Alkaline Phosphatase 111 U/L (38-126); Anion Gap 9 mmol/L (8-16); Aspartate Amino Transferase 27 U/L (17-59); Bilirubin,Total 0.7 mg/dL (0.2-1.3); Blood Urea Nitrogen 16 mg/dL (9-20); Calcium 9.1 mg/dL (8.4-10.2); Carbon Dioxide 31 mmol/L (22-30); Chloride 101 mmol/L (98-107); Estimated CRCL calculation 66 ml/min; Estimated Glomerular Filt Rate > 60; Glucose 149 mg/dL (65-110); Lipase 77 U/L (23-300); Potassium 3.7 mmol/L (3.4-5.0); Sodium 141 mmol/L (137-145)
[2021-06-25 09:25] LABS: Add Urine Microscopic? YES; Appearance Urine Clear (Clear); Bilirubin Urine Negative (Negative); Blood Urine Negative (Negative); Color Urine Yellow (Yellow); Glucose Urine UA Negative (Negative); Ketones Urine Negative (Negative); Leukocyte Esterase Ur Negative LEU/UL (Negative); Mucus Urine Rare /lpf; Nitrate Urine Negative (Negative); Protein Urine 1+ mg/dL (Negative); RBC Urine 0-2 /hpf (0-2); Specific Grav Ur 1.014 (1.001-1.035); Squamous Epithelial Cell Urine Rare /hpf (Few); Urobilinogen Urine Negative mg/dL (<2.0); WBC Urine 0-3 /hpf
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
[2021-06-25 12:24] LABS: INR 0.9; Prothrombin Time 12.1 Seconds (11.1-14.7)
[2021-06-25 12:25] LABS: Partial Thromboplastin Time 37.9 SECONDS (22.3-36.8)
[2021-06-25 12:30] VITALS: BP 139/74; PULSE 58; RESP 18; TEMP 36.4; O2SAT 96
== END 2021-06-25 12:30 | disposition home or self-care (01) ==
PROVIDERS: Emergency Medicine; Emergency Provider Nurse Practitioner; PCP Family Medicine
DX: K63.89 Other specified diseases of intestine (principal); F17.210 Nicotine dependence, cigarettes, uncomplicated; I10 Essential (primary) hypertension; E78.5 Hyperlipidemia, unspecified; I25.10 Atherosclerotic heart disease of native coronary artery without angina pectoris
CPT/HCPCS: 36415; 74177; 80053; 81001; 83690; 85025; 85610; 85730; 99284; Q9967

== ENCOUNTER → 2021-08-05 00:38 | Outpatient (CLI) | payer MEDICARE, SELFPAY ==
[2021-08-05 17:11] LABS: SARS-CoV-2 RNA PCR Negative
== END ==
PROVIDERS: PCP Family Medicine; Visit Provider Family Medicine
DX: R05.9 Cough, unspecified (principal); Z20.822 Contact with and (suspected) exposure to COVID-19
CPT/HCPCS: C9803; U0003; U0005

== ENCOUNTER → 2022-11-08 12:04 | Outpatient (CLI) | payer MEDICARE, SELFPAY ==
--- NOTE | ~2022-11-08 | XR_ITS ---
AP and lateral views of the left hip Clinical history: Pain Findings: No acute fracture or dislocation is seen. Osseous alignment is anatomic. The left hip joint is preserved. Soft tissues are unremarkable. Impression: No significant abnormality is seen. Reviewed, dictated and finalized at location . Impression: No significant abnormality is seen.
== END ==
PROVIDERS: PCP Family Medicine; Visit Provider Family Medicine
DX: M25.552 Pain in left hip (principal)
CPT/HCPCS: 73502

== ENCOUNTER 2023-09-09 14:43 | Outpatient (CLI) | payer MEDICARE, SELFPAY ==
[2023-09-09 20:42] LABS: Alanine Aminotransferase 75 U/L (6-50); Albumin Level 4.4 g/dL (3.5-5.1); Alkaline Phosphatase 107 U/L (38-126); Anion Gap 6 mmol/L (8-16); Aspartate Amino Transferase 56 U/L (17-59); Bilirubin,Total 0.7 mg/dL (0.2-1.3); Blood Urea Nitrogen 21 mg/dL (9-20); Calcium 9.5 mg/dL (8.4-10.2); Carbon Dioxide 30 mmol/L (22-30); Chloride 103 mmol/L (98-107); Estimated Glomerular Filt Rate 45; Glucose 87 mg/dL (65-110); Potassium 4.3 mmol/L (3.4-5.0); Sodium 139 mmol/L (137-145)
== END 2023-09-09 14:44 | disposition home or self-care (01) ==
LOC: ANHGOSHLAB 14:45
PROVIDERS: PCP Family Medicine; Visit Provider Family Medicine
DX: E66.9 Obesity, unspecified (principal); Z79.899 Other long term (current) drug therapy
CPT/HCPCS: 36415; 80053

== ENCOUNTER 2023-09-16 11:14 | Outpatient (CLI) | payer MEDICARE, SELFPAY ==
[2023-09-16 18:56] LABS: Hematocrit 38.1 % (42.0-52.0); Mean Corpuscular HGB Conc 31.5 g/dl (32-36); Mean Corpuscular Hemoglobin 32.9 pg (26-34); Mean Corpuscular Volume 104.4 fl (80-100); Mean Platelet Volume 11.4 fl (7.4-10.4); Platelet Count Result 199 k/mm3 (150-375); Red Blood Count 3.65 M/mm3 (4.6-6.20); Red Cell Distribution Width 17.6 % (11.5-14.5); White Blood Count 4.7 K/mm3 (4.5-10.0)
[2023-09-16 20:06] LABS: Alanine Aminotransferase 71 U/L (6-50); Albumin Level 4.3 g/dL (3.5-5.1); Alkaline Phosphatase 103 U/L (38-126); Anion Gap 7 mmol/L (8-16); Aspartate Amino Transferase 62 U/L (17-59); Bilirubin,Total 0.9 mg/dL (0.2-1.3); Blood Urea Nitrogen 24 mg/dL (9-20); Calcium 9.4 mg/dL (8.4-10.2); Carbon Dioxide 32 mmol/L (22-30); Chloride 101 mmol/L (98-107); Estimated Glomerular Filt Rate 45; Glucose 91 mg/dL (65-110); Sodium 140 mmol/L (137-145)
== END 2023-09-16 11:15 | disposition home or self-care (01) ==
LOC: ANHGOSHLAB 11:16
PROVIDERS: PCP Family Medicine; Visit Provider Family Medicine
DX: R74.8 Abnormal levels of other serum enzymes (principal); N18.9 Chronic kidney disease, unspecified; Z79.899 Other long term (current) drug therapy
CPT/HCPCS: 36415; 80053; 85027

== ENCOUNTER 2023-10-01 09:18 | Outpatient (CLI) | payer MEDICARE, SELFPAY ==
--- NOTE | 2023-10-07 12:23 | WPDSLEEPSTUD ---
Sleep Study Date of Study: 10/01/23 Ordering Provider: Mamta Esquivel MD Interpreting Physician: Mamta Esquivel MD Sleep Study Type: Split Polysomnogram Height: 1.75 m Weight: 102.965 kg Body Mass Index: 33.5 Neck Circumference (inches): 18 [place]: 5 Reason for Sleep Study Recent atrial fibrillation, congestive heart failure required, oxygen in the hospital during sleep Hypersomnia; in the office, his [place] was 12, elevated Sleep History Javad Thomas is an 82-year-old man with recent new onset atrial fibrillation and congestive heart failure after COVID in July 2023. He required oxygen with sleep when he was in the hospital. His cork grinder suspects sleep apnea, and Dr Rolon referred him for sleep evaluation. He never awakens from sleep feeling short of breath. He occasionally wakes at night with heartburn, belching or coughing.??He occasionally snores, only rarely snores loudly enough that others complain. He never has trouble sleeping when he has a cold. He never wakes up gasping for breath during the night. He never has breathing problems at night. He occasionally sweats excessively at night. He occasionally notices his heart pounding or beating irregularly during the night. He frequently falls asleep during the day, never involuntarily or while driving. He never experiences loss of muscle tone with strong emotion. He never has daytime difficulty at work due to excessive sleepiness. He never feels paralyzed on waking or falling asleep. He never experiences vivid dreams upon waking or falling asleep. He never feels afraid of going to sleep. He never has nightmares. He occasionally recalls his dreams. He never has thoughts racing through his mind. He never feels sad or depressed. He never feels anxiety. He frequently notices parts of his body jerk. He never kicks during the night. He never feels crawling or aching feelings in his legs. He never feels leg pain at night. He never has morning jaw pain or rinds his teeth at night. He frequently feels bothered by pain during the day, occasionally awakened by pain during the night. He never wakes up feeling stiff in the morning, and he never wakes feeling sore or achy. He never awakens with pain in his neck, spine, or joints. Normal bedtime is 10:30 p.m., falling asleep within 20-25 minutes, waking 3 times at night, only rarely due to needing to urinate. His awakenings are for unclear reasons. He is able to return to sleep within 5-10 minutes. His normal morning awakening is 7:30 a.m.. He keeps the same schedule on weekends. He estimates getting between 8 and 9 hours of sleep nightly. He takes naps in the day for an hour; a short 10-15 minute nap would not be refreshing. Most of the time he feels adequate on waking. He feels better in the evening compared to earlier in the day. Habits:??Tobacco: Former smoker, quit 35 years ago Caffeine: 1 beverage per day. Alcohol: None Recreational substances: none PMFSH Past Medical History Medical History A-fib Bunion of great toe CKD (chronic kidney disease) History of coronary artery disease History of hyperlipidemia History of hypertension Hx of renal cell cancer Prostate cancer Surgical History Surgical History H/O cervical discectomy H/O colonoscopy H/O spinal fusion History of esophagogastroduodenoscopy (EGD) History of nephrectomy Hx of cholecystectomy Family History Family History Father Diabetes mellitus Hypertension Patient's father is , Onset Age: 85 Family history of cardiovascular disease Acute myocardial infarction Family history of coronary artery disease Mother Diabetes mellitus Hypertension Family history of cardiovascular disease Acute myocardial infarction Cerebrovascular accident Family history of c
[2023-10-07 17:29] VITALS: BMI 33.5
== END 2023-10-02 08:02 | disposition home or self-care (01) ==
LOC: ANHCSM 09:19
PROVIDERS: PCP Family Medicine; Visit Provider Internal Medicine Critical Care Medicine
DX: G47.33 Obstructive sleep apnea (adult) (pediatric) (principal); R29.818 Other symptoms and signs involving the nervous system; I48.91 Unspecified atrial fibrillation
CPT/HCPCS: 95811

== ENCOUNTER 2023-10-28 14:16 | Outpatient (CLI) | payer MEDICARE, SELFPAY ==
--- NOTE | ~2023-10-28 | US_ITS ---
US renal BI 10/28/2023 15:01 Procedure: High-resolution ultrasound of the kidneys and bladder using transabdominal technique Indication: Abnormal results of renal function. Status post right nephrectomy in 2006. Comparison: CT dated 06/25/2021 Findings: Right kidney is surgically absent. Left renal echotexture is normal without hydronephrosis, contour deforming mass or renal calculi. Left kidney measures 12.4 cm. No bladder is within normal l imits without focal bladder wall thickening or mass. Impression: 1: Unremarkable renal ultrasound status post right nephrectomy. No stones, masses or hydronephrosis. Reviewed, dictated and finalized at location B. Impression: 1: Unremarkable renal ultrasound status post right nephrectomy. No stones, mas ses or hydronephrosis.
== END 2023-10-28 14:17 | disposition home or self-care (01) ==
PROVIDERS: PCP Family Medicine; Visit Provider Internal Medicine Nephrology
DX: R94.4 Abnormal results of kidney function studies (principal); Z90.5 Acquired absence of kidney
CPT/HCPCS: 76775

== ENCOUNTER 2023-12-11 11:27 | Outpatient (CLI) | payer MEDICARE, SELFPAY ==
--- NOTE | ~2023-12-11 | XR_ITS ---
EXAMINATION: XR bone survey comp/metastic DATE: 12/11/2023 12:25 INDICATION: Monoclonal gammopathy of undetermined significance. TECHNIQUE: 34 views of a skeletal survey were obtained. COMPARISON: None. FINDINGS: There is mild atelectasis at the lung bases. No pleural effusion or pneumothorax. The heart size is normal. There are changes of anterior fusion procedure in cervical spine. There is severe ce rvical spondylosis. There is severe thoracic and lumbar spondylosis. Changes of posterior fusion proc edure in lumbar spine. There are surgical clips in the abdomen. IMPRESSION: 1. No evidence of multiple myeloma. Reviewed, dictated and finalized at location A.
== END 2023-12-11 11:28 | disposition home or self-care (01) ==
LOC: ANHIMG 11:28
PROVIDERS: PCP Family Medicine; Visit Provider Internal Medicine Hematology & Oncology
DX: D47.2 Monoclonal gammopathy (principal)
CPT/HCPCS: 77075